=== PATIENT | female | born 1960 | race Caucasian/White ===

== ENCOUNTER 2022-01-29 11:32 | Day surgery (SDC) | payer MEDICAID ==
[~2022-01-29] VITALS: Ht 152.4 cm; Wt 95.4 kg
[~2022-01-29 11:32] MED LIST: ALBU6.7H14 IH; BENZ200C53 PO; DOXY-354 PO; FLUT1DIS26 IH; FLUT9.9S16 NASAL; IPRA6S NASAL; SODIUM CHLORIDE 0.9% 1,000 ML IV ONE; SODIUM CHLORIDE 0.9% 1,000 ML ONE
[2022-01-29 11:59] LABS: COVID AG,FIA SOURCE NASAL SWAB
[2022-01-29] MEDS ORDERED: SODIUM CHLORIDE 0.9% 1,000 ML IV ONE (12:00)
[2022-01-29] MEDS ORDERED: PROPOFOL 1% 20 ML VIAL IVP ONE (12:00)
[2022-01-29] MEDS ORDERED: LIDOCAINE/PF 2% 5 ML VIAL IM ONE (12:00)
== END 2022-01-29 15:20 | disposition home or self-care (01) ==
LOC: SURGERY 11:32
PROVIDERS: ATTEND Internal Medicine Gastroenterology
DX: R19.4 Change in bowel habit (principal); K62.89 Other specified diseases of anus and rectum; K64.0 First degree hemorrhoids; F17.210 Nicotine dependence, cigarettes, uncomplicated; F32.A Depression, unspecified; F41.9 Anxiety disorder, unspecified; D64.9 Anemia, unspecified; E66.01 Morbid (severe) obesity due to excess calories; Z20.822 Contact with and (suspected) exposure to COVID-19; Z90.710 Acquired absence of both cervix and uterus; Z98.890 Other specified postprocedural states; G89.29 Other chronic pain; Z68.41 Body mass index [BMI] 40.0-44.9, adult
CPT/HCPCS: 45378; 87426; C9803; J2704; J3490; J7030